=== PATIENT | female | born 1965 | race Caucasian/White ===

== ENCOUNTER → 2017-06-04 | Outpatient (CLI) | payer BC ==
--- NOTE | 2017-06-05 08:32 | MM ---
Reason for exam: screening (asymptomatic). Last mammogram was performed 3 years and 10 months ago. Physical Findings: A clinical breast exam by your physician is recommended on an annual basis and results should be correlated with mammographic findings. MG Screening Mammo w CAD Bilateral CC and MLO view(s) were taken. Prior study comparison: July 27, 2013, bilateral digital screening mammo w/CAD. May 30, 2012, CAD bilateral diagnostic mammogram. There are scattered fibroglandular densities. Focal asymmetry upper right MLO view, 3.1cm from nipple. This finding is changed when compared with previous exams. ASSESSMENT: Incomplete: need additional imaging evaluation, BI-RAD 0 RECOMMENDATION: Special view mammogram of the right breast. If lesion persists on supplemental views, image directed ultrasound is recommended. [facility] will attempt to contact patient to return for supplemental views and ultrasound if indicated.
== END | disposition home or self-care (01) ==
LOC: RADMAMWWP 10:43
PROVIDERS: ATTEND Family Medicine
DX: Z12.31 Encounter for screening mammogram for malignant neoplasm of breast (principal); R92.2 Inconclusive mammogram

== ENCOUNTER → 2017-06-11 | Outpatient (CLI) | payer BC ==
--- NOTE | 2017-06-11 09:52 | MM ---
Reason for exam: additional evaluation requested from abnormal screening. Last mammogram was performed less than 1 month ago. Physical Findings: Nurse did not find any significant physical abnormalities on exam. MG Work Up Mamm w CAD RT CC, MLO, LM, spot compression CC, and spot compression MLO view(s) were taken of the right breast. Prior study comparison: June 04, 2017, bilateral MG screening mammo w CAD. July 27, 2013, bilateral digital screening mammo w/CAD. There is no discrete abnormality including area of concern. These results were verbally communicated with the patient and result sheet given to the patient on 06/11/17. ASSESSMENT: Negative, BI-RAD 1 RECOMMENDATION: Return to routine screening mammogram schedule for both breasts.
== END | disposition home or self-care (01) ==
LOC: RADMAMWWP 08:27
PROVIDERS: ATTEND Family Medicine
DX: R92.8 Other abnormal and inconclusive findings on diagnostic imaging of breast (principal)

== ENCOUNTER 2018-03-12 07:23 | Day surgery (SDC) | payer BC ==
[~2018-03-12 07:23] MED LIST: LACTATED RINGERS 1,000 ML IV SCH; LIDOCAINE 1% 20 ML VIAL (10MG/ML) FOR IV START INTRADERMA PRN
[2018-03-12 08:00] VITALS: TEMP 99.2
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
[2018-03-12] MEDS ORDERED: PROPOFOL 10 MG/ML 20 ML VIAL IV ONE (08:20)
--- NOTE | 2018-03-12 08:38 | P.PCN ---
Date of Procedure: 03/12/18 Description of Procedure: PREOPERATIVE DIAGNOSIS: Colonoscopy screening. POSTOPERATIVE DIAGNOSIS: Colonoscopy screening. External hemorrhoids OPERATION: Colonoscopy to the ileocecal valve and appendiceal orifice. SURGEON: Iliana Freedman MD. ANESTHESIA: MAC. INDICATIONS: The patient is a 52-year-old female who presents for her first colonoscopy screening. Benefits and risks were described and informed consent was obtained. DESCRIPTION OF PROCEDURE: The patient had undergone Gatorade, MiraLAX and Dulcolax prep. She had been brought into the operating room and laid in the left lateral decubitus position. After adequate intravenous sedation, the rectum was examined with 2% lidocaine jelly. External hemorrhoids were encountered. The rectal tone was within normal limits. No lesions were palpated in the rectal vault. An Olympus colonoscope was advanced until the ileocecal valve and appendiceal orifice were clearly viewed. The prep was excellent with clear visualization of the mucosal folds. The scope was removed with visualization of each mucosal fold. No scattered diverticulosis was encountered. No colonic polyps were found. No evidence of focal colitis was found. Retroflexion of the scope demonstrated grade 1 internal hemorrhoids without active bleeding or inflammation. The colon was desufflated. The patient had tolerated the procedure well. Withdrawal time was over 6 minutes. FINDINGS: Internal hemorrhoids, grade 1 External prolapsed hemorrhoids. No arteriovenous malformations. No adenomatous polyps. No focal colitis. No sigmoid diverticulosis RECOMMENDATIONS: Lower endoscopy in 10 years per screening guidelines, 2027 Plan - Discharge Summary Discharge Rx Participant: No New Discharge Prescriptions: No Action Montelukast [Singulair] 10 mg PO HS Loratadine [Claritin] 10 mg PO QAM Levothyroxine Sodium [Synthroid] 50 mcg PO QAM Calcium Carbonate/Vitamin D3 [Caltrate 600 + D Tablet] 1 tab PO BID Biotin 5 mg PO BID Zinc 1 tab PO DAILY Magnesium 1 tab PO DAILY Discharge Medication List Biotin 5 mg PO BID 07/17/14 [History] Calcium Carbonate/Vitamin D3 [Caltrate 600 + D Tablet] 1 tab PO BID 07/17/14 [ History] Levothyroxine Sodium [Synthroid] 50 mcg PO QAM 07/17/14 [History] Loratadine [Claritin] 10 mg PO QAM 07/17/14 [History] Montelukast [Singulair] 10 mg PO HS 07/17/14 [History] Magnesium 1 tab PO DAILY 03/07/18 [History] Zinc 1 tab PO DAILY 03/07/18 [History]
[2018-03-12 08:59] VITALS: RESP 18
[2018-03-12 09:30] VITALS: BP 137/82; PULSE 70
== END 2018-03-12 09:23 | disposition home or self-care (01) ==
LOC: ORWHC2ENDO 07:23
PROVIDERS: ATTEND Surgery Plastic and Reconstructive Surgery
DX: Z12.11 Encounter for screening for malignant neoplasm of colon (principal); M79.7 Fibromyalgia; K64.4 Residual hemorrhoidal skin tags; K64.0 First degree hemorrhoids; F17.210 Nicotine dependence, cigarettes, uncomplicated; J45.909 Unspecified asthma, uncomplicated; G89.29 Other chronic pain; E07.9 Disorder of thyroid, unspecified; Z86.14 Personal history of Methicillin resistant Staphylococcus aureus infection; Z90.49 Acquired absence of other specified parts of digestive tract; Z79.899 Other long term (current) drug therapy; Z88.5 Allergy status to narcotic agent; Z91.040 Latex allergy status
CPT/HCPCS: 45378; J2704

== ENCOUNTER → 2018-06-06 | Outpatient (CLI) | payer BC ==
--- NOTE | 2018-06-10 13:25 | MM ---
Reason for exam: screening (asymptomatic). Last mammogram was performed 1 year ago. History: Patient is postmenopausal. Physical Findings: A clinical breast exam by your physician is recommended on an annual basis and results should be correlated with mammographic findings. MG Screening Mammo w CAD Bilateral CC and MLO view(s) were taken. Prior study comparison: June 11, 2017, right breast MG work up mamm w CAD RT. June 04, 2017, bilateral MG screening mammo w CAD. The breast tissue is heterogeneously dense. This may lower the sensitivity of mammography. There is no discrete abnormality. ASSESSMENT: Negative, BI-RAD 1 RECOMMENDATION: Routine screening mammogram of both breasts in 1 year.
== END | disposition home or self-care (01) ==
LOC: RADMAMWWP 10:59
PROVIDERS: ATTEND Family Medicine
DX: Z12.31 Encounter for screening mammogram for malignant neoplasm of breast (principal)
CPT/HCPCS: 77067

== ENCOUNTER → 2021-03-08 | Outpatient (CLI) | payer BC ==
--- NOTE | 2021-03-08 06:58 | MR ---
MRI CERVICAL SPINE: CLINICAL HISTORY: Cervical disc degeneration. TECHNIQUE: Multiplanar, multisequence imaging of the cervical spine is performed without and with IV contrast, 8 cc of gadolinium was given intravenously. COMPARISON: Cervical spine x-ray July 17, 2014. FINDINGS: Sagittal images of the cervical spine show the craniocervical junction to. Within normal li mits. The cervical and upper thoracic spinal cord is normal in course, caliber, and signal. Vertebr al alignment is stable and satisfactory. There is artifact anterior fusion hardware and disc material C3-C7 levels. Bone marrow signal intensity is maintained. No abnormal postcontrast enhancement. Axial images at C2-C3 level appear within normal limits. Axial images at C3-C4, C4-C5, C5-C6, C6-C7, and C7-T1 levels show artifact from surgical hardware. Th ere is slight effacement anterior thecal sac due to small disc bulge C7-T1 level. Patent bilateral ne ural foramina. IMPRESSION: Long segment postsurgical change redemonstrated. Stable and satisfactory alignment noted.
== END | disposition home or self-care (01) ==
LOC: RADMRIMAIN 06:11
PROVIDERS: ATTEND Family Medicine
DX: M50.30 Other cervical disc degeneration, unspecified cervical region (principal); M50.23 Other cervical disc displacement, cervicothoracic region
CPT/HCPCS: 72156; A9585

== ENCOUNTER → 2021-06-09 | Outpatient (CLI) | payer BC ==
--- NOTE | 2021-06-12 09:06 | CT ---
EXAMINATION TYPE: CT cervical spine wo con DATE OF EXAM: 06/09/2021 COMPARISON: MRI 03/08/2021 HISTORY: 56-year-old female M50.30, cervical disc degeneration TECHNIQUE: Contiguous axial scanning of the cervical spine without IV contrast. Coronal and sagittal reconstructions performed. CT DLP: 649.7 mGycm Automated exposure control for dose reduction was used. FINDINGS: No craniocervical junction amount, predental space widening, or prevertebral soft tissue swelling. Post surgical change of ACDF from C3 through C7 ACDF. There appears to be satisfactory interbody anky losis but with only partial bony fusion across C6-C7. The inferior end of the fixation plate seems to abut the anterior superior corner of the T1 vertebral body. No bony canal compromise is identified. Alignment is maintained. No significant bony neuroforaminal narrowing seen. The orthopedic hardware appears intact. IMPRESSION: 1. STATUS POST C3-C7 ACDF. INTERBODY ANKYLOSIS ACROSS THE MAJORITY OF THE LEVELS. ONLY PARTIAL BONY F USION ACROSS C6/C7. 2. THE INFERIOR END OF THE FIXATION PLATE SEEMS TO ABUT THE ANTERIOR SUPERIOR CORNER OF THE T1 VERTEB RAL BODY. CORRELATE FOR ANY MECHANICAL SYMPTOMS.
== END | disposition home or self-care (01) ==
LOC: RADCTMAIN 13:40
PROVIDERS: ATTEND Family Medicine
DX: M50.30 Other cervical disc degeneration, unspecified cervical region (principal); Z98.1 Arthrodesis status
CPT/HCPCS: 72125

== ENCOUNTER → 2021-07-31 | Outpatient (CLI) | payer BC ==
--- NOTE | 2021-07-31 13:06 | XR ---
Cervical spine HISTORY: M47.812 Spondylosis without myelopathy or radiculo 5 views of the cervical spine correlated to prior cervical spine 07/17/2014 Patient is status post anterior cervical fusion and discectomy at C3-C7, intervertebral spacing block s are present, stable near anatomic alignment. Prevertebral soft tissues are stable. There is some fa cet arthropathy changes. No evident change in alignment on flexion and extension views. IMPRESSION: Neurosurgical follow-up
--- NOTE | 2021-07-31 16:08 | NM ---
EXAMINATION TYPE: NM bone scan whole body DATE OF EXAM: 07/31/2021 COMPARISON: Cervical spine 07/31/2021 HISTORY: M47.812 Spondylosis without myelopathy or radiculo Delayed whole-body scanning was performed following the injection of 24 mCi Tc 99m MDP. Images acqui red 3 hours post injection. FINDINGS: Uptake along the posterior cervical spine on the left is likely due to facet arthropathy. Soft tissue uptake is normal. Uptake within the feet, wrists and hands, shoulders, sternoclavicular joints is li praveena degenerative. IMPRESSION: Degenerative changes.
== END | disposition home or self-care (01) ==
LOC: RADNMMAIN 11:23
DX: M47.812 Spondylosis without myelopathy or radiculopathy, cervical region (principal)
CPT/HCPCS: 72050; 78306; A9503

== ENCOUNTER → 2021-10-09 | Outpatient (CLI) | payer BC ==
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
[2021-10-09 08:04] VITALS: BP 126/82; PULSE 77; RESP 18
== END ==
LOC: PNWHC3 06:56
PROVIDERS: ATTEND Specialist
DX: M47.812 Spondylosis without myelopathy or radiculopathy, cervical region (principal); J45.909 Unspecified asthma, uncomplicated; Z98.1 Arthrodesis status; Z88.5 Allergy status to narcotic agent; Z91.040 Latex allergy status
CPT/HCPCS: 99211

== ENCOUNTER → 2021-11-24 | Day surgery (SDC) | payer BC ==
[2021-11-22 13:26] VITALS: BMI 32.0
[~2021-11-24] MED LIST changes: +IV FLUID CONTINUATION 1,000 ML IV ONE; -LIDOCAINE 1% 20 ML VIAL (10MG/ML) FOR IV START INTRADERMA PRN; +MIDAZOLAM 2 MG/2 ML VIAL ONE; +ROPIVACAINE 5MG/ML 20ML VIAL ONE; +fentaNYL (PF) 50 MCG/ML 2 ML AMP ONE; +methylPREDNISolone ACETATE 40 MG/ML 1 ML VIAL ONE
[2021-11-24 12:28] VITALS: TEMP 98.3
--- NOTE | 2021-11-24 14:01 | P.PCN ---
Date of Procedure: 11/24/21 Procedure(s) Performed: PREOPERATIVE DIAGNOSIS: Cervical Spondylosis with Facet Arthropathy.without myelopathy POSTOPERATIVE DIAGNOSIS: Cervical Spondylosis Facet Arthropathy. Without myelopathy PROCEDURES: Diagnostic ,Bilateral C2 ,C3, C4 medial branch blocks, with fluoroscopic guidance (fluoroscopy images available in radiology department ) ( to target the facet joint at Bilateral C2- 3 , C3-4 ) ANESTHESIA= monitored anesthesia care as per anesthesia department. EBL: Minimal PROCEDURE INDICATION: The patient with neck pain secondary to cervical arthropathy unresponsive to more conservative treatments. PROCEDURE DESCRIPTION / TECHNIQUE: The patient was seen and identified in the preoperative area. Risks, benefits, complications, and alternatives were discussed with the patient, the patient agreed to proceed with the procedure and signed the consent. IV was started. Vital signs remained stable throughout the procedure. Patient was taken to the OR and time out was completed. The patient was placed in the prone position on the procedure table. A pillow was placed under the patients chest to increase the cervical interlaminar space. The cervical area was prepped and draped in the usual sterile fashion. Critical pause was taken. Vital signs were closely monitored during the procedure. Conscious sedation was used during the procedure to decrease patients anxiety. Using cross-table lateral fluoroscopy, the centroid of the trapezoid of right C2 ,C3, C4 , was identified, marked, and localized with 1% lidocaine 1 ml at each level for skin and Sub Q infiltrations . Subsequently, a 25 G 3 spinal needle was advanced guided by fluoroscopy to the centroid of the trapezoid of Right C2 ,C3, C4 Lemont tip position was confirmed at the centroid of the trapezoids of Right C2 , C3 , C4 , with anteroposterior fluoroscopy. Subsequently, 1,5 ml of preservative-free Ropivacaine 0.5% mixed with Depo- Medrol 20 mg and half ml of the mixture was injected after negative aspiration for blood and CSF. Lemont was then removed intact the same procedure was repeated at the left C2 ,C3 , C4 levels. COMPLICATIONS: No acute complications. DISPOSITION / PLANS: The patient was placed in a supine position and transferred to the recovery area in a stable condition for observation and was discharged from the recovery room after meeting discharge criteria. Home discharge instructions given to the patient by the staff. The patient was reexamined prior to discharge. The patient will schedule a follow up in the clinic in 2-4 weeks.
[2021-11-24 14:07] VITALS: BP 131/77; PULSE 65; RESP 12
--- NOTE | 2021-11-24 14:14 | FL ---
Fluoroscopy History: cervical pain cervical facet block bilat, 13sec fl time
== END | disposition home or self-care (01) ==
LOC: ORPAIN 12:02
PROVIDERS: ATTEND Specialist
DX: M47.812 Spondylosis without myelopathy or radiculopathy, cervical region (principal)
CPT/HCPCS: 64490; 64491; J2250; J1030; J3010; J2795

== ENCOUNTER 2021-12-29 12:50 | Day surgery (SDC) | payer BC ==
[2021-12-29 13:23] VITALS: TEMP 98.6
[2021-12-29] MEDS ORDERED: LACTATED RINGERS 1,000 ML IV ONE (13:38)
[2021-12-29] MEDS ORDERED: ROPIVACAINE 5MG/ML 20ML VIAL ONE (14:32)
[2021-12-29] MEDS ORDERED: MIDAZOLAM 2 MG/2 ML VIAL ONE (14:32)
[2021-12-29] MEDS ORDERED: fentaNYL (PF) 50 MCG/ML 2 ML AMP ONE (14:32)
[2021-12-29] MEDS ORDERED: methylPREDNISolone ACETATE 40 MG/ML 1 ML VIAL ONE (14:32)
--- NOTE | 2021-12-29 14:53 | P.PCN ---
Date of Procedure: 12/29/21 Procedure(s) Performed: PREOPERATIVE DIAGNOSIS: Cervical Spondylosis with Facet Arthropathy.without myelopathy POSTOPERATIVE DIAGNOSIS: Cervical Spondylosis Facet Arthropathy. Without myelopathy PROCEDURES: Diagnostic ,Bilateral C2 ,C3, C4 medial branch blocks, with fluoroscopic guidance (fluoroscopy images available in radiology department ) ( to target the facet joint at Bilateral C2- 3 , C3-4 )#2nd ANESTHESIA= monitored anesthesia care as per anesthesia department. EBL: Minimal PROCEDURE INDICATION: The patient with neck pain secondary to cervical arthropathy unresponsive to more conservative treatments. PROCEDURE DESCRIPTION / TECHNIQUE: The patient was seen and identified in the preoperative area. Risks, benefits, complications, and alternatives were discussed with the patient, the patient agreed to proceed with the procedure and signed the consent. IV was started. Vital signs remained stable throughout the procedure. Patient was taken to the OR and time out was completed. The patient was placed in the prone position on the procedure table. A pillow was placed under the patients chest to increase the cervical interlaminar space. The cervical area was prepped and draped in the usual sterile fashion. Critical pause was taken. Vital signs were closely monitored during the procedure. Conscious sedation was used during the procedure to decrease patients anxiety. Using cross-table lateral fluoroscopy, the centroid of the trapezoid of right C2 ,C3, C4 , was identified, marked, and localized with 1% lidocaine 1 ml at each level for skin and Sub Q infiltrations . Subsequently, a 22 G 3 spinal needle was advanced guided by fluoroscopy to the centroid of the trapezoid of Right C2 ,C3, C4 Sherman tip position was confirmed at the centroid of the trapezoids of Right C2 , C3 , C4 , with anteroposterior fluoroscopy. Subsequently, 1,5 ml of preservative-free Ropivacaine 0.5% mixed with Depo- Medrol 20 mg and half ml of the mixture was injected after negative aspiration for blood and CSF. Sherman was then removed intact the same procedure was repeated at the left C2 ,C3 , C4 levels. COMPLICATIONS: No acute complications. DISPOSITION / PLANS: The patient was placed in a supine position and transferred to the recovery area in a stable condition for observation and was discharged from the recovery room after meeting discharge criteria. Home discharge instructions given to the patient by the staff. The patient was reexamined prior to discharge. The patient will schedule a follow up in the clinic in 2-4 weeks.
[2021-12-29 15:20] VITALS: BP 143/85; PULSE 78; RESP 16
--- NOTE | 2021-12-29 15:33 | FL ---
Fluoroscopy History: CERVICAL STERIOD INJECTION. CERVICAL STERIOD INJECTION. 18 SECS FL
== END 2021-12-29 15:40 | disposition home or self-care (01) ==
LOC: ORPAIN 12:50
PROVIDERS: ATTEND Specialist
DX: M47.812 Spondylosis without myelopathy or radiculopathy, cervical region (principal); I10 Essential (primary) hypertension; F17.200 Nicotine dependence, unspecified, uncomplicated; E07.9 Disorder of thyroid, unspecified; Z79.890 Hormone replacement therapy; Z88.5 Allergy status to narcotic agent; Z91.040 Latex allergy status; Z79.899 Other long term (current) drug therapy
CPT/HCPCS: 64490; 64491; J2250; J1030; J3010; J2795

== ENCOUNTER → 2022-01-18 | Outpatient (CLI) | payer BC ==
[2022-01-18 07:58] VITALS: BP 139/95; PULSE 91; RESP 18; TEMP 98.2
--- NOTE | 2022-01-18 08:05 | P.PN ---
Subjective Progress Note Date: 01/18/22 Principal diagnosis: A 56 yr old female with a history of severe and chronic neck pain secondary to cervical degenerative disc diseases and spondylosis with facet arthropathy presents today for evaluation status post facet block of the medial branches bilateral C2-C3, C3-C4 #2. Patient states she expresses 80% pain relief status post procedure. Pain level is 4 out of 10 in intensity, dull, achy sensation in the middle aspect of the cervical spine with radiation of pain to the superior aspects of the trapezius bilaterally. It is also accompanied with occasional finger tingling, burning and numbness bilaterally. Pain is provoked by extension. Pain is alleviated with medications, injections, heat, physical therapy in December 2020, daily home exercise regimen, massage therapy integratedwith physical therapy and rest. Interventional pain procedures completed include facet block the medial branches C2-C3, C3-C4 #2 Patient is currently on Motrin once a day Patient denies any side effects of the medication(s), denies excessive drowsiness or sleepiness, denies suicidal ideation and reports that the current pain medication is helping to control the pain and improve activities of daily living. Patient denies any motor or sensory deficits. Patient denies any fever or night sweats, denies any change in the bowel movements or urination. Physical Examination: -Constitutional: Cooperative. Not in acute distress . -HEENT: Neck is supple. No lymphadenopathy. No thyromegaly. Normal thyroid size. Eyes: No ptosis , no icterus, no photophobia. ENT: No auditory deficits. Normal oropharynx. No Thrush. - Respiratory: Chest clear to auscultations bilaterally. No wheezing. No rhonchi. - Cardiovascular: Regular rate and rhythm. S1 / S2 , no S3 , no S4. - Gastrointestinal: Abdomen soft no tenderness. Bowel sounds positive in all four quadrants. No organomegaly. - Genitourinary: Deferred. - Neurologic: Cranial nerve II to XII intact. No focal neurological deficits. - Psychatric: Alert & oriented x 3. Matching mood & appropriate affect. Judgment and insight intact. - Lymphatic: No Lymphadenopathy. - Musculoskeletal: Cervical spine: Muscle bulk/ tone/ strength in the bilateral upper extremities normal. Facet loading test cervical area positive. Lumbar spine: Motor bulk/ tone/ strength lower extremities , thigh and legs : 5/5 Deep tendon reflexes : Normal Knee Jerk. Normal Ankle Jerk . Vertebral body tenderness to palpation over Lumbar Facet Loading Test positive Straight Leg Raise: positive at 30 degrees right side/ left side Gaenslen's Test positive Sacral spine : Severe tenderness over the Sacroiliac joint: right side / left side Range of motion: Flexion of the lumbar spine <60 degrees Range of motion: Extension of the lumbar spine <20 degrees Gaenslen's Test positive Glenn test: positive right side / left side Assessment and plan: Chronic neck pain secondary to occult degenerative disc disease , spondylosis with facet arthropathy without myelopathy Recommendation of bilateral RFA of the C2-C3, C3-C4. Risks, benefits of procedure discussed and patient verbalized understanding. Denies anticoagulant use. Denies medical history diabetes. All patient questions answered MAPS reviewed and it was appropriate. I have spent 31 minutes on patient care today. Dr Davila was available by phone for the evaluation of this patient. The time was used to review the medical records including relevant urine studies and Prescription history (MAPs), review of the available imaging, evaluation and examination of the patient, coordination of care with the medical staff and if applicable referring physicians, as well as creation of the medical record Objective - Vital Signs Vital signs: Vital Signs Temp 98.2 F 01/18/22 07:50 Pulse 91 01/18/22 07:50 Resp 18 01/18/22 07:50 BP 139/95 01/18/22 07:50 Pulse Ox 96 01/18/22 07:50 PQRS Measure Charge Sheet Mode of Arrival: Ambulatory - Pain Location Neck Non-Pharmacological Interventions: Heat, Home Exercise, Inactivity, Massage, Physical Therapy, Relaxation Technique, Sitting, Stretching Pharmacological Interventions: Block, PRN Medication PQRS Narrative: Smoking Status Current every day smoker Blood Pressure 139/95 Pain Intensity [Neck] 4 Scale Used Numeric (1 - 10) Hx Alcohol Use (MH) Yes: OCCASIONAL Home Medications: Ambulatory Orders Levothyroxine Sodium [Synthroid] 50 mcg PO QAM 07/17/14 Loratadine [Claritin] 10 mg PO QAM 07/17/14 Montelukast [Singulair] 10 mg PO 07/17/14 Multivitamins, Thera [Multivitamin (formulary)] 1 tab PO HS 11/22/21 Pregabalin [Lyrica] 150 mg PO HS 11/22/21 Irbesartan 300 mg PO DAILY 12/29/21
== END ==
LOC: PNWHC3 07:30
PROVIDERS: ATTEND Specialist
DX: M47.812 Spondylosis without myelopathy or radiculopathy, cervical region (principal); M50.30 Other cervical disc degeneration, unspecified cervical region; G89.29 Other chronic pain; F17.200 Nicotine dependence, unspecified, uncomplicated; Z91.040 Latex allergy status; Z88.5 Allergy status to narcotic agent
CPT/HCPCS: 99211

== ENCOUNTER 2022-03-02 06:07 | Day surgery (SDC) | payer BC ==
[2022-02-28 15:23] VITALS: BMI 30.2
[~2022-03-02 06:07] MED LIST changes: -IV FLUID CONTINUATION 1,000 ML IV ONE; +LIDOCAINE 1% (10MG/ML) FOR IV START INTRADERMA PRN; -MIDAZOLAM 2 MG/2 ML VIAL ONE; -ROPIVACAINE 5MG/ML 20ML VIAL ONE; -fentaNYL (PF) 50 MCG/ML 2 ML AMP ONE; -methylPREDNISolone ACETATE 40 MG/ML 1 ML VIAL ONE
[2022-03-02] MEDS ORDERED: LACTATED RINGERS 1,000 ML IV ONE (07:03)
[2022-03-02] MEDS ORDERED: MIDAZOLAM 2 MG/2 ML VIAL ONE (07:10)
[2022-03-02] MEDS ORDERED: ROPIVACAINE 5MG/ML 20ML VIAL ONE (07:10)
[2022-03-02] MEDS ORDERED: methylPREDNISolone ACETATE 40 MG/ML 1 ML VIAL ONE (07:10)
[2022-03-02] MEDS ORDERED: fentaNYL (PF) 50 MCG/ML 2 ML AMP ONE (07:10)
--- NOTE | 2022-03-02 07:48 | P.PCN ---
Date of Procedure: 03/02/22 Procedure(s) Performed: PREOPERATIVE DIAGNOSIS: Cervical spondylosis with Facet Arthropathy without myelopathy. POSTOPERATIVE DIAGNOSIS: Cervical spondylosis with Facet Arthropathy without myelopathy. PROCEDURES: Radiofrequency thermocoagulation Bilateral C2 ,C3, C4, medial branch with Fluroscopy [place](fluoroscopy was available in Radiology department ) (to denervate the facet joint at Bilateral C2-3 ,C3- 4 ) ANESTHESIA: Monitored anesthesia care as per anesthesia department. EBL: Minimal PROCEDURE INDICATION: The patient with neck pain secondary to cervical arthropathy who had more than 50% relief of her pain with previous diagnostic cervical medial branch block. PROCEDURE DESCRIPTION / TECHNIQUE: The patient was seen and identified in the preoperative area. Risks, benefits, complications, and alternatives were discussed with the patient, the patient agreed to proceed with the procedure and signed the consent. IV was started. Vital signs remained stable throughout the procedure. Patient was taken to the OR and time out was completed. The patient was placed in the prone position on the procedure table. A pillow was placed under the patients chest to increase the cervical interlaminar space. The cervical area was prepped and draped in the usual sterile fashion. Critical pause was taken. Vital signs were closely monitored during the procedure. Conscious sedation was used during the procedure to decrease patients anxiety. Using cross-table lateral fluoroscopy, the centroid of the trapezoid of Right C2 ,C3, C4, were identified, marked, and localized with 1% lidocaine. Subsequently, a 20 [id number] radiofrequency cannula with a 10-mm active tip was advanced guided by fluoroscopy to the centroid of the trapezoid of Right C2 , C3, C4, . Needle tip position was confirmed at the centroid of the trapezoids of Right C2 ,C3, C4, with anteroposterior fluoroscopy. Each site then underwent sensory testing at 50 Hz and 0 to 1 volt and motor testing at 2 Hz and 0 to 3 volt with local stimulation, but no radicular symptoms down the arm. Thereafter each sites underwent radiofrequency thermocoagulation at 80 degrees celsius for 90 seconds after injecting 0.5 ml of PF Ropivacaine 0.5 %. After thermocoagulation, 1 ml of the block solution containing Depo-Medrol 20 mg and 3 mL of preservative-free normal saline was injected at the right C2 ,C3, C4, levels after negative aspiration of CSF and blood and with no paresthesias. Ca nnulas were retracted while injecting lidocaine 1% until the needle is out. the n the exact same procedure was repeated for the left side at C2 ,C3 , C4 , then after the RFA done for the left side ,the Skin was cleansed and bandages were applied. COMPLICATIONS: No acute complications. DISPOSITION / PLANS: The patient was placed in a supine position and transferred to the recovery area in a stable condition for observation and was discharged from the recovery room after meeting discharge criteria. Home discharge instructions given to the patient by the staff. The patient was reexamined prior to discharge. The patient will schedule a follow up in the clinic in 2-4 weeks.
--- NOTE | 2022-03-02 07:55 | FL ---
Fluoroscopy History: Cerv Rad Freq cervical rad frequency. [address] Monroe. 4 images sent.
[2022-03-02] MEDS ORDERED: IV FLUID CONTINUATION 500 ML IV ONE (07:56)
[2022-03-02 08:11] VITALS: RESP 16
[2022-03-02 08:12] VITALS: BP 115/76; PULSE 56
== END 2022-03-02 08:29 | disposition home or self-care (01) ==
LOC: ORPAIN 06:07
PROVIDERS: ATTEND Specialist
DX: M47.812 Spondylosis without myelopathy or radiculopathy, cervical region (principal)
CPT/HCPCS: 64633; 64634; J2250; J1030; J3010; J2795

== ENCOUNTER → 2022-04-05 | Outpatient (CLI) | payer BC ==
[2022-04-05 07:56] VITALS: BP 141/83; PULSE 93; RESP 18; TEMP 98.2
--- NOTE | 2022-04-05 07:58 | P.PAINPG ---
Objective - Vital Signs Vital signs: Intake & Output 04/04/22 04/05/22 04/05/22 18:59 06:59 18:59 Weight 72.121 kg PQRS Measure Charge Sheet Comment: A 56 yr old female with a history of severe and chronic neck pain secondary to cervical degenerative disc diseases and spondylosis with facet arthropathy presents today for evaluation status post BL RFA C2-C3, C3-C4. She states she experienced 30% pain relief status post procedure. Pain level is currently at 6 out of 10 in intensity, dull, pressure type sensation mostly localized in the left mid cervical spine but escalates as high as 8 out of 10 intensity at bedtime. Denies radiation of pain. Pain is alleviated with medications, topicals which provided no relief, injections, physical therapy in March 2021, home stretching regimen, repositioning and rest. Interventional pain procedures completed include BL RFA C2-C3, C3-C4 Patient is currently on Motrin OTC Patient denies any side effects of the medication(s), denies excessive drowsiness or sleepiness, denies suicidal ideation and reports that the current pain medication is helping to control the pain and improve activities of daily living. Patient denies any motor or sensory deficits. Patient denies any fever or night sweats, denies any change in the bowel movements or urination. Physical Examination: -Constitutional: Cooperative. Not in acute distress . -HEENT: Neck is supple. No lymphadenopathy. No thyromegaly. Normal thyroid size. Eyes: No ptosis , no icterus, no photophobia. ENT: No auditory deficits. Normal oropharynx. No Thrush. - Respiratory: Chest clear to auscultations bilaterally. No wheezing. No rhonchi. - Cardiovascular: Regular rate and rhythm. S1 / S2 , no S3 , no S4. - Gastrointestinal: Abdomen soft no tenderness. Bowel sounds positive in all four quadrants. No organomegaly. - Genitourinary: Deferred. - Neurologic: Cranial nerve II to XII intact. No focal neurological deficits. - Psychatric: Alert & oriented x 3. Matching mood & appropriate affect. Judgment and insight intact. - Lymphatic: No Lymphadenopathy. - Musculoskeletal: Cervical spine: +L C2-C7 paraspinal TTP Muscle bulk/ tone/ strength in the bilateral upper extremities normal Vertebral body tenderness to palpation over Facet loading test positive Thoracic spine Muscle bulk / tone/ strength in the bilateral paraspinal muscles normal Vertebral body tender to palpation over Facet loading test positive Lumbar spine: Motor bulk/ tone/ strength lower extremities , thigh and legs : 5/5 Deep tendon reflexes : Normal Knee Jerk. Normal Ankle Jerk . Vertebral body tenderness to palpation over Lumbar Facet Loading Test positive Straight Leg Raise: positive at 30 degrees right side/ left side Gaenslen's Test positive Sacral spine : Severe tenderness over the Sacroiliac joint: right side / left side Range of motion: Flexion of the lumbar spine <60 degrees Range of motion: Extension of the lumbar spine <20 degrees Gaenslen's Test positive Mario's Test positive Glenn test: positive right side / left side Thigh Thrust Test Sacral Thrust Test Assessment and plan: Chronic low back pain secondary to lumbar degenerative disc disease , lumbar spondylosis with facet arthropathy without myelopathy Recommendation of L TPIs of C2-C7. Patient exhibited moderate pain relief status post procedure. She may still be confusing muscle spasms status post procedure with cervical neuropathy. Risks, benefits of procedure discussed and pt verbalized understanding. Denies anticoagulant use or medical history of diabetes. All patient questions answered MAPS reviewed and it was appropriate. I have spent 31 minutes on patient care today. Dr Davila was available by phone for the evaluation of this patient. The time was used to review the medical records including relevant urine studies and Prescription history (MAPs), review of the available imaging, evaluation and examination of the patient, coordination of care with the medical staff and if applicable referring physicians, as well as creation of the medical record PQRS Narrative: Smoking Status Current every day smoker Pain Intensity [Neck] 7 Hx Alcohol Use (MH) Yes: OCCASIONAL Home Medications: Ambulatory Orders Levothyroxine Sodium [Synthroid] 50 mcg PO QAM 07/17/14 Loratadine [Claritin] 10 mg PO QAM 07/17/14 Montelukast [Singulair] 10 mg PO HS 07/17/14 Multivitamins, Thera [Multivitamin (formulary)] 1 tab PO HS 11/22/21 Irbesartan 300 mg PO HS 12/29/21 Albuterol Inhaler [Ventolin Hfa Inhaler] 2 puff INHALATION RT-QID PRN 04/04/22 Budesonide-Formot 160-4.5 Mcg [Symbicort 160-4.5 Mcg Inhaler] 2 puff INHALATION BID 04/04/22 Melatonin 8 mg PO HS 04/04/22 Controlled Substance Measures - Controlled Substance Measures Is patient prescribed a controlled substance at discharge?: No
== END ==
LOC: PNWHC3 07:22
PROVIDERS: ATTEND Specialist
DX: M51.36 Other intervertebral disc degeneration, lumbar region (principal); M47.816 Spondylosis without myelopathy or radiculopathy, lumbar region; G89.29 Other chronic pain; F17.200 Nicotine dependence, unspecified, uncomplicated; Z91.040 Latex allergy status; Z88.5 Allergy status to narcotic agent
CPT/HCPCS: 99211

== ENCOUNTER 2023-07-02 08:12 | Emergency (ER) | payer BC ==
[2023-07-02 08:21] VITALS: RESP 18
[2023-07-02] MEDS ORDERED: CYCLOBENZAPRINE 5 MG TAB PO STA (08:53)
[2023-07-02] MEDS ORDERED: IBUPROFEN 600 MG TAB PO STA (08:53)
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
--- NOTE | 2023-07-02 09:35 | XR ---
EXAMINATION TYPE: XR shoulder complete 3 views LT DATE OF EXAM: 07/02/2023 Comparison: None Clinical History: 58-year-old female complaining of left shoulder pain Findings: Mild degenerative change AC joint. Subacromial space is preserved. No tendinous or bursal calcificati ons. Smooth delineation of the greater tuberosity. No acute fracture, subluxation, dislocation. Impression: Mild AC joint joint. No acute osseous abnormality seen.
[2023-07-02] MEDS ORDERED: dexAMETHasone 2 MG TAB PO STA (10:30)
[2023-07-02 10:44] VITALS: BP 127/78; PULSE 79; TEMP 98.6
== END 2023-07-02 10:55 | disposition home or self-care (01) ==
LOC: EC 08:12
DX: S43.402A Unspecified sprain of left shoulder joint, initial encounter (principal); J45.909 Unspecified asthma, uncomplicated; E07.9 Disorder of thyroid, unspecified; F17.200 Nicotine dependence, unspecified, uncomplicated; Z79.890 Hormone replacement therapy; Z79.899 Other long term (current) drug therapy; Z88.5 Allergy status to narcotic agent; Z91.040 Latex allergy status; Z79.51 Long term (current) use of inhaled steroids; Z90.49 Acquired absence of other specified parts of digestive tract; X50.0XXA Overexertion from strenuous movement or load, initial encounter
CPT/HCPCS: 73030; 99283; J8540